=== PATIENT | female | born 1995 | race Caucasian/White ===

== ENCOUNTER 2017-04-19 19:49 | Outpatient (CLI) | payer MEDICAID ==
[~2017-04-19] VITALS: Ht 170.2 cm; Wt 95.0 kg
== END 2017-04-19 20:24 | disposition home or self-care (01) ==
LOC: LDOP 19:49
PROVIDERS: ATTEND Obstetrics & Gynecology Female Pelvic Medicine and Reconstructive Surgery
DX: O36.8120 Decreased fetal movements, second trimester, not applicable or unspecified (principal); Z3A.26 26 weeks gestation of pregnancy
CPT/HCPCS: 59025; 99211; G0463

== ENCOUNTER 2020-07-26 10:33 | Inpatient (IN) | payer MEDICAID ==
[~2020-07-26] VITALS: Ht 170.2 cm; Wt 116.8 kg
[2020-07-26] MEDS ORDERED: PREN1TAB10 PO (11:09)
[2020-07-26 11:17] VITALS: BP 119/72
[2020-07-26 11:29] LABS: MICROSCOPIC INDICATED
[2020-07-26 11:40] LABS: AMPHETAMINE SCREEN, URINE Negative (Negative); BARBITURATE SCREEN, URINE Negative (Negative); BENZODIAZEPINE SCREEN, URINE Negative (Negative); CANNABINOID SCREEN, URINE Positive (Negative); COCAINE SCREEN, URINE Negative (Negative); METHADONE SCREEN, URINE Negative (Negative); OPIATE SCREEN, URINE Negative (Negative)
[2020-07-26] MEDS ORDERED: NITROFURANTOIN (MACROBID) 100 MG CAPSULE ONE ×2 (11:59→20:53)
[2020-07-26] MEDS ORDERED: NITROFURANTOIN (MACROBID) 100 MG CAPSULE PO ONE (12:00)
[2020-07-26] MEDS ORDERED: NITR100C56 PO (12:01)
[2020-07-26] MEDS: LACTATED RINGERS 1,000 ML IV SCH ×3 (13:20→18:05)
[2020-07-26] MEDS ORDERED: TERBUTALINE 1 MG/ML, 1ML IVPush PRN (13:30)
[2020-07-26] MEDS ORDERED: OXYTOCIN 30U/ 0.9% NaCL 500ML 500 ML IV ONE (13:30)
[2020-07-26] MEDS ORDERED: FENTANYL PF 100 MCG/2ML IVPush PRN (13:30)
[2020-07-26] MEDS ORDERED: TERBUTALINE 1 MG/ML, 1ML SQ PRN (13:30)
[2020-07-26] MEDS ORDERED: FENTANYL PF 100 MCG/2ML IV PRN (13:30)
[2020-07-26] MEDS ORDERED: D5%-LACTATED RINGERS 1,000 ML IV SCH (13:30)
[2020-07-26] MEDS ORDERED: MISOPROSTOL 25 MCG TABLET VG PRN (13:30)
[2020-07-26 13:42] LABS: BASOPHILS % (AUTO) 1 % (0-1); EOSINOPHILS % (AUTO) 0 % (1-7); LYMPHOCYTES % (AUTO) 12 % (22-44); MEAN CORPUSCULAR HEMOGLOBIN 30.9 pg (27.0-34.8); MEAN CORPUSCULAR HGB CONC 33.9 g/dL (32.4-35.8); MEAN PLATELET VOLUME 8.5 fL (7.4-10.4); MONOCYTES % (AUTO) 5 % (2-9); NEUTROPHILS % (AUTO) 83 % (42-75); PLATELET COUNT 232 x10^3/uL (130-400); RED BLOOD COUNT 4.39 x10^6/uL (3.82-5.3); RED CELL DISTRIBUTION WIDTH 14.2 % (9.6-15.2)
[2020-07-26 13:54] LABS: MD SCAN
[2020-07-26] MEDS ORDERED: FENTANYL PF 100 MCG/2ML ONE (14:21)
[2020-07-26] MEDS ORDERED: NEWBORN KIT ONE (14:56)
[2020-07-26] MEDS ORDERED: MISOPROSTOL 200 MCG TABLET ONE (14:57)
[2020-07-26] MEDS ORDERED: OXYTOCIN 30U/ 0.9% NaCL 500ML 500 ML ONE ×2 (14:57→20:02)
[2020-07-26] MEDS ORDERED: LIDOCAINE 1%, 20ML ONE (14:57)
[2020-07-26] MEDS ORDERED: PENICILLIN GK 5,000,000 UNITS in DEXTROSE 5% 100 ML IVPB ONE (15:00)
[2020-07-26] MEDS ORDERED: FENTANYL/BUPIV./NS/PF 250 ML EPIDCONT ONE (15:07)
[2020-07-26] MEDS ORDERED: BUPIVACAINE 0.25% ONE (15:08)
[2020-07-26] MEDS ORDERED: NALOXONE 0.4 MG/ML, 1ML IVPush PRN (15:30)
[2020-07-26] MEDS ORDERED: LACTATED RINGERS 1,000 ML IV SCH (15:30)
[2020-07-26] MEDS ORDERED: FENTANYL/BUPIV./NS/PF 250 ML EPIDCONT SCH (15:30)
[2020-07-26] MEDS ORDERED: EPHEDRINE 50 MG/ML, 1ML IVPush PRN (15:30)
[2020-07-26] MEDS ORDERED: LACTATED RINGERS 1,000 ML IVBOLUS PRN (15:30)
[2020-07-26] MEDS ORDERED: ONDANSETRON 2MG/ML, 2ML ONE (16:13)
[2020-07-26] MEDS ORDERED: ONDANSETRON 2MG/ML, 2ML IVPush PRN (16:30)
[2020-07-26] MEDS ORDERED: ACETAMINOPHEN 325 MG TABLET PO PRN ×2 (19:00)
[2020-07-26] MEDS ORDERED: SIMETHICONE 80 MG CHEW TAB PO PRN (19:00)
[2020-07-26] MEDS ORDERED: OXYcodone/APAP 5/325MG TABLET PO PRN (19:00)
[2020-07-26] MEDS ORDERED: RHOGAM FROM BLOOD BANK 1 NOTE EA IM/IV ONE (19:00)
[2020-07-26] MEDS ORDERED: MISOPROSTOL 200 MCG TABLET PR PRN (19:00)
[2020-07-26] MEDS ORDERED: ONDANSETRON 2MG/ML, 2ML IV PRN (19:00)
[2020-07-26] MEDS ORDERED: PENICILLIN GK 2,500,000 UNITS in DEXTROSE 5% 100 ML IVPB SCH (19:00)
[2020-07-26] MEDS: OXYTOCIN 30U/ 0.9% NaCL 500ML 500 ML IV SCH (20:52)
[2020-07-26] MEDS: NITROFURANTOIN (MACROBID) 100 MG CAPSULE PO SCH (20:53)
[2020-07-26 22:10] VITALS: BP 96/61
[2020-07-27 03:10] VITALS: BP 102/64
[2020-07-27 03:15] LABS: BASOPHILS % (AUTO) 1 % (0-1); EOSINOPHILS % (AUTO) 0 % (1-7); LYMPHOCYTES % (AUTO) 17 % (22-44); MEAN CORPUSCULAR HEMOGLOBIN 31.3 pg (27.0-34.8); MEAN CORPUSCULAR HGB CONC 34.2 g/dL (32.4-35.8); MEAN PLATELET VOLUME 8.9 fL (7.4-10.4); MONOCYTES % (AUTO) 7 % (2-9); NEUTROPHILS % (AUTO) 75 % (42-75); PLATELET COUNT 203 x10^3/uL (130-400); RED BLOOD COUNT 3.64 x10^6/uL (3.82-5.3); RED CELL DISTRIBUTION WIDTH 14.1 % (9.6-15.2)
[2020-07-27 03:19] LABS: MD NO
[2020-07-27] MEDS: OXYTOCIN 30U/ 0.9% NaCL 500ML 500 ML IV SCH ×2 (05:00→15:00)
[2020-07-27] MEDS: IBUPROFEN 600 MG TABLET PO PRN ×3 (06:27→21:02)
[2020-07-27 08:20] VITALS: BP 108/70
[2020-07-27] MEDS: PRENATAL VIT/IRON/FA 1 EACH TABLET PO SCH (08:31)
[2020-07-27] MEDS: DOCUSATE 100 MG CAPSULE PO PRN ×2 (08:32→21:01)
[2020-07-27] MEDS: OXYcodone/APAP 5/325MG TABLET PO PRN (08:33)
[2020-07-27] MEDS: NITROFURANTOIN (MACROBID) 100 MG CAPSULE PO SCH ×2 (09:30→21:01)
[2020-07-27 12:30] VITALS: BP 95/60
[2020-07-27 16:30] VITALS: BP 109/71
[2020-07-27 20:55] VITALS: BP 104/66
[2020-07-28] MEDS: OXYTOCIN 30U/ 0.9% NaCL 500ML 500 ML IV SCH ×2 (01:00→11:00)
[2020-07-28] MEDS: OXYcodone/APAP 5/325MG TABLET PO PRN ×2 (02:54→08:01)
[2020-07-28] MEDS: NITROFURANTOIN (MACROBID) 100 MG CAPSULE PO SCH (08:00)
[2020-07-28] MEDS: IBUPROFEN 600 MG TABLET PO PRN (08:01)
[2020-07-28] MEDS: PRENATAL VIT/IRON/FA 1 EACH TABLET PO SCH (08:01)
[2020-07-28] MEDS: DOCUSATE 100 MG CAPSULE PO PRN (08:01)
[2020-07-28 08:04] VITALS: BP 119/82
[2020-07-28] MEDS ORDERED: IBUP-1222 PO (09:26)
== END 2020-07-28 14:07 | disposition home or self-care (01) | DRG 807 ==
LOC: LDOP 10:33 → LDIP 13:34 → 2NW 21:00
PROVIDERS: ADMIT Obstetrics & Gynecology; ATTEND Obstetrics & Gynecology
PROC: 10E0XZZ Delivery of Products of Conception, External Approach (ICD-10-PCS; principal; 2020-07-26)
PROC: 3E0R3BZ Introduction of Anesthetic Agent into Spinal Canal, Percutaneous Approach (ICD-10-PCS; 2020-07-26)
PROC: 00HU33Z Insertion of Infusion Device into Spinal Canal, Percutaneous Approach (ICD-10-PCS; 2020-07-26)
PROC: 0HQ9XZZ Repair Perineum Skin, External Approach (ICD-10-PCS; 2020-07-26)
DX: O75.3 Other infection during labor (principal); Z37.0 Single live birth; Z3A.39 39 weeks gestation of pregnancy; O77.0 Labor and delivery complicated by meconium in amniotic fluid; O70.0 First degree perineal laceration during delivery
CPT/HCPCS: 36415; 80307; 81001; 85025; 86592; 86762; 86850; 86900; 87086; 87340; 87635; 87806; G0378; J2405; J2540; J3010; G0475; J2590; J7120

== ENCOUNTER 2021-04-01 14:13 | Emergency (ER) | payer MEDICAID ==
[~2021-04-01] VITALS: Ht 170.2 cm; Wt 110.2 kg
[~2021-04-01 14:13] MED LIST: IBUP-1222 PO; NITR100C56 PO; PREN1TAB10 PO
[2021-04-01 14:20] VITALS: BP 125/65
--- NOTE | 2021-04-01 15:25 | NUR ---
XR AT BS
--- NOTE | 2021-04-01 16:22 | NUR ---
Patient given wound care/discharge instructions and they have confirmed that they understand the instructions. Patient ambulatory with steady gait. NAD, all questions answered appropriately, denies additional needs at this time. No personal belongings left in room after discharge.
== END 2021-04-01 16:30 | disposition home or self-care (01) ==
LOC: ED 16:00
DX: S91.312A Laceration without foreign body, left foot, initial encounter (principal); F17.210 Nicotine dependence, cigarettes, uncomplicated; X58.XXXA Exposure to other specified factors, initial encounter; Y93.89 Activity, other specified; Y92.009 Unspecified place in unspecified non-institutional (private) residence as the place of occurrence of the external cause; Y99.8 Other external cause status
CPT/HCPCS: 99283; 99406